=== PATIENT | male | born 1965 | race Hispanic/Latino ===

== ENCOUNTER 2022-05-19 13:03 | Emergency (ER) | payer OTHER ==
[2022-05-19 16:32] VITALS: BP 138/71
[2022-05-19] MEDS ORDERED: NAPR-1084 PO (16:47)
== END 2022-05-19 17:08 | disposition home or self-care (01) ==
LOC: EDH 13:03
DX: T14.8XXA Other injury of unspecified body region, initial encounter (principal); V89.2XXA Person injured in unspecified motor-vehicle accident, traffic, initial encounter; Y93.I9 Activity, other involving external motion; Y92.488 Other paved roadways as the place of occurrence of the external cause; Y99.8 Other external cause status
CPT/HCPCS: 70450; 71045; 72040; 72125